=== PATIENT | male | born 1935 | race Hispanic/Latino ===

== ENCOUNTER 2018-04-25 13:50 | Emergency (ER) | payer OTHER, MEDICARE ==
[2018-04-25] MEDS ORDERED: ORPHENADRINE CITRATE 30 MG/ML ML ONE (16:11)
== END 2018-04-25 16:59 | disposition home or self-care (01) ==
LOC: EDH 13:50
DX: S13.8XXA Sprain of joints and ligaments of other parts of neck, initial encounter (principal); S00.83XA Contusion of other part of head, initial encounter; E11.9 Type 2 diabetes mellitus without complications; Z79.4 Long term (current) use of insulin; Z87.891 Personal history of nicotine dependence; W20.8XXA Other cause of strike by thrown, projected or falling object, initial encounter; Y93.89 Activity, other specified; Y92.098 Other place in other non-institutional residence as the place of occurrence of the external cause; Y99.8 Other external cause status
CPT/HCPCS: 70450; 72125; 96372; 99284; J2360

== ENCOUNTER 2019-04-09 14:18 | Inpatient (IN) | payer OTHER, MEDICARE ==
[~2019-04-09] VITALS: Ht 168.9 cm; Wt 77.6 kg
[2019-04-09 14:53] LABS: BASOPHILS % (AUTO) 0.3 % (0.0-5.0); EOSINOPHILS % (AUTO) 1.8 % (0.0-8.0); HEMATOCRIT 37.7 % (42-54); LYMPHOCYTES % (AUTO) 15.8 % (21.0-51.0); MEAN CORPUSCULAR HGB CONC 32.7 g/dL (32.0-36.0); MEAN CORPUSCULAR VOLUME 82.4 fL (79-99); MONOCYTES % (AUTO) 5.8 % (3.0-13.0); NEUTROPHILS % (AUTO) 76.3 % (40.0-77.0); PLATELET COUNT (AUTO) 208 K/uL (130-400); RED BLOOD CELL COUNT(AUTO) 4.57 MIL/uL (4.50-6.20); RED CELL DISTRIBUTION WIDTH 14.5 % (11.0-15.5); WHITE BLOOD COUNT (AUTO) 12.6 K/uL (4.8-10.8)
[2019-04-09] MEDS ORDERED: DEXAMETHASONE SOD PHOSPHATE 10MG/ML 1ML VIAL ONE (15:02)
[2019-04-09] MEDS ORDERED: CEFTRIAXONE SODIUM 1 GM ONE (15:02)
[2019-04-09] MEDS ORDERED: KETOROLAC TROMETHAMINE 30MG/ML ONE (15:02)
[2019-04-09] MEDS ORDERED: SODIUM CHLORIDE 0.9% 1000ML 1,000 ML IV ONE (15:03)
[2019-04-09] MEDS ORDERED: SODIUM CHLORIDE 0.9% 100 ML IV ONE (15:03)
[2019-04-09 15:30] LABS: CREATININE 1.1 mg/dL (0.5-1.5); POTASSIUM 4.4 mmol/L (3.5-5.1)
[2019-04-09 15:39] LABS: BILIRUBIN,DIRECT 0.1 mg/dL (0.0-0.3); BILIRUBIN,TOTAL 0.4 mg/dL (0.2-1.0); TOTAL PROTEIN, SERUM 7.4 g/dL (6.0-8.3)
[2019-04-09] MEDS ORDERED: ACETAMINOPHEN 325 MG TAB PO PRN (16:30)
[2019-04-09] MEDS ORDERED: ONDANSETRON HCL 4 MG/2 ML VIAL IVP PRN (16:30)
[2019-04-09] MEDS ORDERED: AZITHROMYCIN 500MG+NS 250ML 250 ML IV ONE ×2 (16:35→17:06)
[2019-04-09] MEDS ORDERED: IPRATROPIUM/ALBUTEROL SULFATE 3 ML SOLUTION IH ONE (16:44)
[2019-04-09 18:10] VITALS: BP 115/72
[2019-04-09 19:15] VITALS: BP 108/56
[2019-04-09] MEDS: DOXYCYCLINE 100MG+NS 250ML 250 ML IV SCH (20:07)
[2019-04-10] VITALS (7 sets, daily range): BP systolic 109–128; BP diastolic 53–65
[2019-04-10 04:58] LABS: HEMATOCRIT 32.8 % (42-54); MEAN CORPUSCULAR HEMOGLOBIN 27.6 pg (27.0-33.0); MEAN CORPUSCULAR HGB CONC 33.8 g/dL (32.0-36.0); MEAN CORPUSCULAR VOLUME 81.8 fL (79-99); PLATELET COUNT (AUTO) 196 K/uL (130-400); RED BLOOD CELL COUNT(AUTO) 4.01 MIL/uL (4.50-6.20); RED CELL DISTRIBUTION WIDTH 14.5 % (11.0-15.5); WHITE BLOOD COUNT (AUTO) 8.5 K/uL (4.8-10.8)
[2019-04-10 05:12] LABS: ALBUMIN 2.5 g/dL (3.5-5.0); BILIRUBIN,TOTAL 0.3 mg/dL (0.2-1.0); CREATININE 1.2 mg/dL (0.5-1.5); MAGNESIUM 1.7 mg/dL (1.80-2.40); POTASSIUM 4.4 mmol/L (3.5-5.1); TOTAL PROTEIN, SERUM 6.5 g/dL (6.0-8.3)
[2019-04-10] MEDS: INSULIN HUMULIN R 100 UNIT/ML 3ML SQ SCH ×4 (06:01→22:01)
[2019-04-10] MEDS: DOXYCYCLINE 100MG+NS 250ML 250 ML IV SCH ×2 (10:18→22:02)
--- NOTE | 2019-04-10 11:42 | NUR ---
DCP CM met with pt discussed dc plans. Pt is independent prior to admission, lives at home alone, daughter lives close by. Denies any equipments/services. Pt feels safe to go back home, daughter able to assist with transportation and needs as necessary. DC plan to home once stable. CM to cont to follow up. Addendum: 04/10/19 at 1143 by ANTON MOLINA LVN CM Amended: Links added.
[2019-04-10] MEDS ORDERED: METF-444 PO (14:28)
[2019-04-10] MEDS ORDERED: LACT10SO9 PO (14:28)
[2019-04-10] MEDS ORDERED: ATOR40TA71 PO (14:28)
[2019-04-10] MEDS ORDERED: ICOS1CAP PO (14:28)
[2019-04-10] MEDS ORDERED: ESOM40CA54 PO ×2 (14:28)
[2019-04-10] MEDS: CEFTRIAXONE SODIUM 1 GM IVP SCH (14:46)
[2019-04-10] MEDS: LACTULOSE 20 GM/30 ML UDCUP PO SCH (19:01)
[2019-04-10] MEDS: METFORMIN HCL 500 MG TABLET PO SCH (22:02)
[2019-04-10] MEDS: ATORVASTATIN CALCIUM 40 MG TABLET PO SCH (22:03)
[2019-04-11] MEDS: LACTULOSE 20 GM/30 ML UDCUP PO SCH ×2 (03:49→08:46)
[2019-04-11 03:52] VITALS: BP 100/51
[2019-04-11] MEDS: INSULIN HUMULIN R 100 UNIT/ML 3ML SQ SCH ×4 (06:36→21:25)
[2019-04-11] MEDS: Icosapent Ethyl (Vascepa) 2 GM PO SCH ×2 (08:00→16:57)
[2019-04-11 08:08] VITALS: BP 132/61
[2019-04-11] MEDS: DOXYCYCLINE 100MG+NS 250ML 250 ML IV SCH ×2 (08:47→21:23)
[2019-04-11] MEDS: PANTOPRAZOLE SODIUM 40 MG TABLET.DR PO SCH (08:47)
[2019-04-11] MEDS ORDERED: LACTULOSE 20 GM/30 ML UDCUP PO SCH (09:00)
[2019-04-11 12:04] VITALS: BP 111/59
[2019-04-11] MEDS: CEFTRIAXONE SODIUM 1 GM IVP SCH (15:22)
[2019-04-11 16:33] VITALS: BP 133/59
[2019-04-11 19:00] VITALS: BP 123/63
[2019-04-11] MEDS: ATORVASTATIN CALCIUM 40 MG TABLET PO SCH (21:24)
[2019-04-11] MEDS: METFORMIN HCL 500 MG TABLET PO SCH (21:24)
[2019-04-11 23:00] VITALS: BP 143/74
[2019-04-12 03:00] VITALS: BP 117/55
[2019-04-12] MEDS: INSULIN HUMULIN R 100 UNIT/ML 3ML SQ SCH ×2 (05:39→11:30)
[2019-04-12] MEDS: Icosapent Ethyl (Vascepa) 2 GM PO SCH (08:00)
[2019-04-12 08:14] VITALS: BP 132/52
[2019-04-12] MEDS: PANTOPRAZOLE SODIUM 40 MG TABLET.DR PO SCH (10:29)
[2019-04-12] MEDS: DOXYCYCLINE 100MG+NS 250ML 250 ML IV SCH (10:30)
[2019-04-12 12:11] VITALS: BP 114/45
[2019-04-12] MEDS ORDERED: LEVO500T2 PO (15:10)
== END 2019-04-12 15:20 | disposition home or self-care (01) | DRG 871 ==
LOC: EDH 14:18 → EDHIP 16:05 → 3BH 18:06
PROVIDERS: ADMIT Internal Medicine Infectious Disease; ATTEND Internal Medicine Infectious Disease
DX: A41.9 Sepsis, unspecified organism (principal); J18.9 Pneumonia, unspecified organism; Y95 Nosocomial condition; E11.9 Type 2 diabetes mellitus without complications; E66.9 Obesity, unspecified; E78.5 Hyperlipidemia, unspecified; I10 Essential (primary) hypertension; K59.00 Constipation, unspecified; E78.00 Pure hypercholesterolemia, unspecified; Z68.27 Body mass index [BMI] 27.0-27.9, adult; Z83.3 Family history of diabetes mellitus
CPT/HCPCS: 36415; 71046; 74176; 80048; 80053; 80076; 82550; 82948; 83605; 83690; 83735; 85025; 85027; 87040; 87804; 93005; 94640; G0378; J0456; J0696; J1100; J1815; J1885; J3490; J7030

== ENCOUNTER 2019-04-15 11:07 | Inpatient (IN) | payer OTHER, MEDICARE ==
[~2019-04-15] VITALS: Ht 165.1 cm; Wt 73.2 kg
[~2019-04-15 11:07] MED LIST: ATOR40TA71 PO; ESOM40CA54 PO; ICOS1CAP PO; LACT10SO9 PO; LEVO500T2 PO; METF-444 PO
[2019-04-15] MEDS ORDERED: ASPIRIN 325 MG TABLET ONE (11:17)
[2019-04-15 11:49] LABS: EOSINOPHILS % (AUTO) 3.1 % (0.0-8.0); HEMATOCRIT 34.7 % (42-54); LYMPHOCYTES % (AUTO) 26.5 % (21.0-51.0); MEAN CORPUSCULAR HEMOGLOBIN 27.3 pg (27.0-33.0); MEAN CORPUSCULAR VOLUME 82.8 fL (79-99); MONOCYTES % (AUTO) 6.4 % (3.0-13.0); PLATELET COUNT (AUTO) 239 K/uL (130-400); RED BLOOD CELL COUNT(AUTO) 4.19 MIL/uL (4.50-6.20); RED CELL DISTRIBUTION WIDTH 14.6 % (11.0-15.5); WHITE BLOOD COUNT (AUTO) 9.1 K/uL (4.8-10.8)
[2019-04-15 11:59] LABS: CREATININE 1.1 mg/dL (0.5-1.5); POTASSIUM 4.1 mmol/L (3.5-5.1)
[2019-04-15 12:06] LABS: ALBUMIN 2.6 g/dL (3.5-5.0); BILIRUBIN,TOTAL 0.4 mg/dL (0.2-1.0); TOTAL PROTEIN, SERUM 6.6 g/dL (6.0-8.3)
[2019-04-15 13:28] LABS: INR 1.01 (0.85-1.15); PARTIAL THROMBOPLASTIN TIME 24.4 SEC (26.3-35.5); PROTHROMBIN TIME 10.4 SEC (9.6-11.6)
[2019-04-15] MEDS ORDERED: NITROGLYCERIN 1GM/1 INCH PACKET TD ONE (14:29)
[2019-04-15] MEDS: ENOXAPARIN SODIUM 40 MG/0.4 ML SYRINGE SQ SCH (14:46)
[2019-04-15] MEDS ORDERED: ONDANSETRON HCL 4 MG/2 ML VIAL IVP PRN (15:00)
[2019-04-15] MEDS ORDERED: ACETAMINOPHEN 325 MG TAB PO PRN (15:00)
[2019-04-15] MEDS ORDERED: ENOXAPARIN SODIUM 40 MG/0.4 ML SYRINGE SQ ONE (15:51)
[2019-04-15] MEDS: INSULIN R PO SS1 SQ SCH ×2 (16:30→21:00)
[2019-04-15 18:44] VITALS: BP 134/64
[2019-04-15] MEDS: METOPROLOL TARTRATE 25 MG TAB PO SCH (22:06)
[2019-04-15 22:47] LABS: CREATINE KINASE, TOTAL 31 U/L (21-232); MYOGLOBIN 47 ng/mL (10-92); TROPONIN I < 0.04 ng/mL (0.00-0.06)
[2019-04-15 23:39] VITALS: BP 112/53
[2019-04-16 03:27] VITALS: BP 98/50
[2019-04-16] MEDS: INSULIN R PO SS1 SQ SCH ×4 (06:28→21:47)
[2019-04-16 07:48] VITALS: BP 125/58
--- NOTE | 2019-04-16 08:30 | NUR ---
AM ASSESSMENT PT LAYING IN BED, WATCHING TV, FAMILY @ BEDSIDE. 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 A/O X 3; FORGETFUL @ TIMES. SOB ON EXERTION. NO DISTRESS NOTED. DENIES CHEST PAIN OR DISCOMFORT. DENIES PALPITATIONS. TELE: SR 70s. DENIES N/V AND/OR DIARRHEA. IV PULLED OUT BY PT. CATHETER TIP INTACT. BR W/BRP. INSTRUCTED TO CALL FOR ASSISTANCE. CALL SARY W/IN REACH.
[2019-04-16] MEDS: METOPROLOL TARTRATE 25 MG TAB PO SCH ×2 (09:02→21:46)
[2019-04-16] MEDS: ASPIRIN 81MG TAB.CHEW PO SCH (09:02)
[2019-04-16] MEDS: ENOXAPARIN SODIUM 40 MG/0.4 ML SYRINGE SQ SCH (09:05)
--- NOTE | 2019-04-16 10:32 | NUR ---
DC PLAN PATIENT DISCHARGED THREE DAYS AGO RETURNED FOR DIFFERENT DIAGNOSIS OF CHEST PAIN. PATIENT LIVES ALONE. DAUGHTER LIVES CLOSE BY. INDEPENDENT ABLE TO PERFORM ADL'S. PATIENT HAS NO SERVICES OR DME'S. WANTS TO RETURN HOME. Addendum: 04/16/19 at 1035 by MARK PAIZ RN CM Amended: Links added.
[2019-04-16] MEDS ORDERED: BENZONATATE 100 MG CAPSULE PO SCH (11:45)
[2019-04-16 11:48] VITALS: BP 116/58
[2019-04-16] MEDS: LEVOFLOXACIN 500 MG TABLET PO SCH (11:49)
[2019-04-16 15:40] VITALS: BP 116/53
[2019-04-16 19:38] VITALS: BP 157/73
[2019-04-16] MEDS: BENZONATATE 100 MG CAPSULE PO SCH (21:46)
[2019-04-16 23:33] VITALS: BP 112/50
[2019-04-17 04:24] VITALS: BP 133/56
[2019-04-17] MEDS: INSULIN R PO SS1 SQ SCH ×4 (06:31→21:00)
[2019-04-17 07:39] VITALS: BP 129/59
[2019-04-17] MEDS: METOPROLOL TARTRATE 25 MG TAB PO SCH ×2 (10:23→20:48)
[2019-04-17] MEDS: BENZONATATE 100 MG CAPSULE PO SCH ×2 (10:23→20:48)
[2019-04-17] MEDS: ASPIRIN 81MG TAB.CHEW PO SCH (10:23)
[2019-04-17] MEDS: LEVOFLOXACIN 500 MG TABLET PO SCH ×2 (10:23→11:45)
[2019-04-17] MEDS: ENOXAPARIN SODIUM 40 MG/0.4 ML SYRINGE SQ SCH (10:24)
[2019-04-17 11:38] VITALS: BP 139/63
--- NOTE | 2019-04-17 12:00 | NUR ---
DR. QUINONES RETURNED CALL, STATED TO ADD PT. TO HIS CENSUS.
[2019-04-17 15:34] VITALS: BP 130/60
--- NOTE | 2019-04-17 18:00 | NUR ---
NO C/O OF CHEST DISCOMFORT TODAY.
[2019-04-17 19:15] VITALS: BP 128/49
--- NOTE | 2019-04-17 21:30 | NUR ---
DR QUINONES ROUNDED ON PATIENT PER DR QUINONES STRESS TEST AND ECHO FOR 04/18/19
[2019-04-17 23:27] VITALS: BP 116/55
[2019-04-18 03:45] VITALS: BP 113/54
--- NOTE | 2019-04-18 04:37 | NUR ---
ASSESSMENT NO CHEST PAIN OR SOB THROUGHOUT THE PM SHIFT. PATIENT A/OX3. [place]. HEARING AID ON BEDSIDE TABLE. PATIENT AWARE OF STRESS TEST. PATIENT HAS BEEN NPO SINCE MIDNIGHT. WILL CONTINUE TO MONITOR. CALL LIGHT WITHIN REACH
[2019-04-18] MEDS: INSULIN R PO SS1 SQ SCH ×4 (05:59→21:38)
[2019-04-18] MEDS ORDERED: REGADENOSON 0.4 MG/5 ML PF SYG IVP SCH (07:15)
[2019-04-18 07:24] VITALS: BP 115/57
--- NOTE | 2019-04-18 08:15 | NUR ---
AM ASSESSMENT PT LAYING IN BED, WATCHING TV. SEVERE [place]. A/O X 3. NO SOB. NO DISTRESS NOTED. DENIES CHEST PAIN OR DISCOMFORT. DENIES PALPITATIONS. TELE: SR 60s. DENIES N/V AND/OR DIARRHEA. NPO STATUS REINFORCED. PT TO HAVE ABHI SCAN TODAY. UP W/ASSISTANCE. INSTRUCTED TO CALL FOR ASSISTANCE. CALL SARY W/IN REACH.
[2019-04-18] MEDS: BENZONATATE 100 MG CAPSULE PO SCH ×2 (08:30→20:03)
[2019-04-18] MEDS: METOPROLOL TARTRATE 25 MG TAB PO SCH ×2 (08:30→20:03)
[2019-04-18] MEDS: LEVOFLOXACIN 500 MG TABLET PO SCH (08:30)
[2019-04-18] MEDS: ASPIRIN 81MG TAB.CHEW PO SCH (08:30)
[2019-04-18] MEDS: ENOXAPARIN SODIUM 40 MG/0.4 ML SYRINGE SQ SCH (08:33)
[2019-04-18 11:44] VITALS: BP 125/52
[2019-04-18 15:20] VITALS: BP 134/67
[2019-04-18 19:45] VITALS: BP 140/77
[2019-04-18 23:09] VITALS: BP 129/64
[2019-04-19 03:18] VITALS: BP 109/49
[2019-04-19 04:02] LABS: HEMATOCRIT 36.5 % (42-54); MEAN CORPUSCULAR HGB CONC 32.8 g/dL (32.0-36.0); MEAN CORPUSCULAR VOLUME 82.4 fL (79-99); PLATELET COUNT (AUTO) 197 K/uL (130-400); RED BLOOD CELL COUNT(AUTO) 4.43 MIL/uL (4.50-6.20); RED CELL DISTRIBUTION WIDTH 14.6 % (11.0-15.5); WHITE BLOOD COUNT (AUTO) 7.1 K/uL (4.8-10.8)
[2019-04-19 04:13] LABS: CREATININE 1.1 mg/dL (0.5-1.5)
[2019-04-19] MEDS: INSULIN R PO SS1 SQ SCH ×2 (06:15→11:30)
[2019-04-19 07:28] VITALS: BP 117/61
--- NOTE | 2019-04-19 07:45 | NUR ---
AM ASSESSMENT PT LAYING IN BED, WATCHING TV. A/O X 3. NO SOB. NO DISTRESS NOTED. DENIES CHEST PAIN OR DISCOMFORT. DENIES PALPITATIONS. TELE: SR 70s. DENIES N/V AND/OR DIARRHEA. UP W/ASSISTANCE. INSTRUCTED TO CALL FOR ASSISTANCE. CALL SARY W/IN REACH.
[2019-04-19] MEDS: LEVOFLOXACIN 500 MG TABLET PO SCH (08:37)
[2019-04-19] MEDS: ENOXAPARIN SODIUM 40 MG/0.4 ML SYRINGE SQ SCH (08:37)
[2019-04-19] MEDS: METOPROLOL TARTRATE 25 MG TAB PO SCH (08:37)
[2019-04-19] MEDS: BENZONATATE 100 MG CAPSULE PO SCH (08:37)
[2019-04-19] MEDS: ASPIRIN 81MG TAB.CHEW PO SCH (08:37)
[2019-04-19 11:43] VITALS: BP 116/55
[2019-04-19] MEDS ORDERED: METO-408 PO (14:17)
[2019-04-19] MEDS ORDERED: ISOS30TA6 PO (14:17)
--- NOTE | 2019-04-19 14:35 | NUR ---
DISCHARGE VERBAL & WRITTEN DISCHARGE INSTRUCTIONS REVIEWED & GIVEN TO PT & SPOUSE. QUESTIONS ENCOURAGED & CLARIFIED. PROPER CARE & MGT OF CHEST PAIN REVIEWED. NEW PRESCRIBED MEDICATIONS REVIEWED. PRESCRIPTION GIVEN TO PT; SIGNED COPY PLACED IN CHART. F/U APPT REVIEWED. TELE EUGENE REMOVED EARLIER. IV DISCONTINUED. PT & SPOUSE TO GATHER PERSONAL BELONGINGS. WILL NOTIFY STAFF WHEN READY TO BE TAKEN TO PRIVATE VEHICLE.
== END 2019-04-19 14:50 | disposition home or self-care (01) | DRG 302 ==
LOC: EDH 11:07 → EDHIP 11:08 → 2DH 18:42
PROVIDERS: ADMIT Internal Medicine Infectious Disease; ATTEND Internal Medicine Infectious Disease
DX: I25.119 Atherosclerotic heart disease of native coronary artery with unspecified angina pectoris (principal); J18.9 Pneumonia, unspecified organism; E11.9 Type 2 diabetes mellitus without complications; E78.5 Hyperlipidemia, unspecified; E66.9 Obesity, unspecified; I10 Essential (primary) hypertension; Z90.49 Acquired absence of other specified parts of digestive tract; Z83.3 Family history of diabetes mellitus; Z87.01 Personal history of pneumonia (recurrent); Z68.26 Body mass index [BMI] 26.0-26.9, adult
CPT/HCPCS: 36415; 71045; 71250; 78452; 80048; 80053; 82550; 82948; 83735; 83874; 84484; 85025; 85027; 85610; 85730; 93005; 93017; 93306; 96374; A9500; G0378; J1650; J1815; J2785

== ENCOUNTER 2022-01-21 16:03 | Observation (INO) | payer OTHER, MEDICARE ==
[~2022-01-21] VITALS: Ht 165.1 cm; Wt 72.6 kg
[~2022-01-21 16:03] MED LIST changes: +ALBU90AE2 IH; +ISOS30TA92 PO; +LACT10SO5 PO; -LACT10SO9 PO; -LEVO500T2 PO; +LINA5TAB PO; +METO-408 PO
[2022-01-21 17:22] LABS: BASOPHILS % (AUTO) 0.9 % (0.0-5.0); EOSINOPHILS % (AUTO) 1.6 % (0.0-8.0); HEMATOCRIT 35.4 % (42-54); LYMPHOCYTES % (AUTO) 41.8 % (21.0-51.0); MEAN CORPUSCULAR HEMOGLOBIN 29.4 pg (27.0-33.0); MEAN CORPUSCULAR HGB CONC 31.9 g/dL (32.0-36.0); MEAN CORPUSCULAR VOLUME 91.9 fL (79-99); MONOCYTES % (AUTO) 4.1 % (3.0-13.0); NEUTROPHILS % (AUTO) 51.2 % (40.0-77.0); PLATELET COUNT (AUTO) 505 K/uL (130-400); RED BLOOD CELL COUNT(AUTO) 3.85 MIL/uL (4.50-6.20); RED CELL DISTRIBUTION WIDTH 16.7 % (11.0-15.5); WHITE BLOOD COUNT (AUTO) 11.7 K/uL (4.8-10.8)
[2022-01-21 17:48] LABS: ALBUMIN 2.3 g/dL (3.5-5.0); CREATININE 1.5 mg/dL (0.5-1.5)
[2022-01-21] MEDS ORDERED: 0.9%NACL 1000ML 1,000 ML IV ONE (18:00)
[2022-01-21 18:14] LABS: APPEARANCE,URINE Clear (CLEAR); BILIRUBIN,URINE Negative (NEGATIVE); COLOR,URINE Yellow (YELLOW); GLUCOSE, URINE (UA) >=1000 mg/dL (NEGATIVE); KETONES,URINE Negative (NEGATIVE); LEUKOCYTE ESTERASE ,URINE Negative (NEGATIVE); NITRATE,URINE Negative (NEGATIVE); OCCULT BLOOD,URINE Negative (NEGATIVE); PROTEIN,URINE Negative (NEGATIVE); UROBILINOGEN,URINE 0.2 mg/dL (0.2-1.0)
[2022-01-21 18:20] LABS: BACTERIA,URINE Rare /HPF (None Seen); RBC,URINE 0-1 /HPF (0-1); WBC,URINE 0-1 /HPF (0-1)
[2022-01-21 18:21] LABS: HYALINE CASTS, URINE 0-1 /LPF (0-1 /LPF); MUCUS,URINE Rare LPF (None Seen); SQUAMOUS EPITHELIAL CELL,UR Rare /HPF (0-2)
[2022-01-21] MEDS: INSULIN HUMULIN R 100 UNIT/ML 3ML SQ SCH (21:21)
[2022-01-21] MEDS ORDERED: LIDOCAINE HCL-MPF 1% 2ML VIAL IV PRN (21:30)
[2022-01-21] MEDS ORDERED: POTASSIUM CHLORIDE 20MEQ/100ML 100 ML IV PRN (21:30)
[2022-01-21] MEDS ORDERED: ONDANSETRON 4MG TABLET PO PRN (21:30)
[2022-01-21] MEDS ORDERED: MAGNESIUM 2GM PREMIX 50ML 50 ML IV PRN (21:30)
[2022-01-21] MEDS ORDERED: ENOXAPARIN SODIUM 30 MG/0.3 ML SQ ONE (21:30)
[2022-01-21] MEDS ORDERED: ACETAMINOPHEN 325 MG TAB PO PRN (21:30)
[2022-01-21] MEDS ORDERED: POTASSIUM CHLORIDE 10% ELIXIR 20 MEQ/15 ML UDCUP PO PRN (21:30)
[2022-01-21] MEDS ORDERED: KCL 20 MEQ ERTAB PO PRN (21:30)
[2022-01-21] MEDS: 0.9%NACL 1000ML 1,000 ML IV SCH (21:33)
[2022-01-22 06:58] LABS: BASOPHILS % (AUTO) 1.1 % (0.0-5.0); HEMATOCRIT 33.9 % (42-54); LYMPHOCYTES % (AUTO) 39.9 % (21.0-51.0); MEAN CORPUSCULAR HEMOGLOBIN 29.2 pg (27.0-33.0); MEAN CORPUSCULAR HGB CONC 31.9 g/dL (32.0-36.0); MEAN CORPUSCULAR VOLUME 91.6 fL (79-99); MONOCYTES % (AUTO) 5.7 % (3.0-13.0); NEUTROPHILS % (AUTO) 50.8 % (40.0-77.0); PLATELET COUNT (AUTO) 404 K/uL (130-400); RED CELL DISTRIBUTION WIDTH 16.8 % (11.0-15.5); WHITE BLOOD COUNT (AUTO) 6.5 K/uL (4.8-10.8)
[2022-01-22 07:14] VITALS: BP 126/74
[2022-01-22 07:14] LABS: CREATININE 1.2 mg/dL (0.5-1.5); MAGNESIUM 1.2 mg/dL (1.80-2.40); POTASSIUM 4.2 mmol/L (3.5-5.1)
[2022-01-22 07:33] LABS: HEMOGLOBIN A1C 5.9 % (4.0-6.0)
[2022-01-22] MEDS: 0.9%NACL 1000ML 1,000 ML IV SCH (09:03)
[2022-01-22] MEDS: INSULIN HUMULIN R 100 UNIT/ML 3ML SQ SCH ×3 (11:30→20:53)
[2022-01-22 12:15] VITALS: BP 96/54
[2022-01-22 16:04] VITALS: BP 103/80
[2022-01-22 20:00] VITALS: BP 119/48
[2022-01-22] MEDS ORDERED: ONDANSETRON 4MG INJ ONE (20:23)
[2022-01-23 00:34] VITALS: BP 97/58
[2022-01-23 04:00] VITALS: BP 106/61
[2022-01-23 04:38] LABS: HEMATOCRIT 31.6 % (42-54); MEAN CORPUSCULAR HEMOGLOBIN 29.2 pg (27.0-33.0); MEAN CORPUSCULAR HGB CONC 32.3 g/dL (32.0-36.0); MEAN CORPUSCULAR VOLUME 90.5 fL (79-99); RED BLOOD CELL COUNT(AUTO) 3.49 MIL/uL (4.50-6.20); RED CELL DISTRIBUTION WIDTH 16.6 % (11.0-15.5); WHITE BLOOD COUNT (AUTO) 6.5 K/uL (4.8-10.8)
[2022-01-23 05:01] LABS: MAGNESIUM 1.9 mg/dL (1.80-2.40); POTASSIUM 4.4 mmol/L (3.5-5.1)
[2022-01-23] MEDS: INSULIN HUMULIN R 100 UNIT/ML 3ML SQ SCH (06:05)
[2022-01-23 08:00] VITALS: BP 122/65
[2022-01-23 12:00] VITALS: BP 111/57
== END 2022-01-23 13:35 | disposition home or self-care (01) ==
LOC: EDH 16:03 → EDHIP 21:01 → INTOOBSV 21:01 → EDHIP 01-22 04:37 → 4DH 01-22 06:29
PROVIDERS: ADMIT Internal Medicine Infectious Disease; ATTEND Internal Medicine Infectious Disease
DX: I10 Essential (primary) hypertension (principal); Z20.822 Contact with and (suspected) exposure to COVID-19; I95.89 Other hypotension; E86.1 Hypovolemia; E86.0 Dehydration; N17.9 Acute kidney failure, unspecified; E11.9 Type 2 diabetes mellitus without complications; I25.10 Atherosclerotic heart disease of native coronary artery without angina pectoris; R53.1 Weakness; D64.9 Anemia, unspecified; E78.5 Hyperlipidemia, unspecified; N28.9 Disorder of kidney and ureter, unspecified; D72.829 Elevated white blood cell count, unspecified; R53.81 Other malaise; Z79.899 Other long term (current) drug therapy; Z98.890 Other specified postprocedural states; Z90.49 Acquired absence of other specified parts of digestive tract; Z98.61 Coronary angioplasty status; Z95.1 Presence of aortocoronary bypass graft; Z79.84 Long term (current) use of oral hypoglycemic drugs
CPT/HCPCS: 96372; 96361 ×4; 99285; 84484; 80053; 85025 ×2; 87040 ×2; 83605 ×2; 81001; 36415 ×3; 87635; 71045; 93005; 96365; 96366; 83036; 83735 ×2; 80048 ×2; 82948 ×5; 85027; C9803; J7030; J1650; G0378 ×18; J3475; J2405

== ENCOUNTER 2023-01-18 06:43 | Inpatient (IN) | payer MEDICARE ==
[~2023-01-18] VITALS: Ht 167.6 cm; Wt 62.7 kg
[2023-01-18] MEDS ORDERED: 0.9%NACL 1000ML 1,000 ML IV ONE (07:30)
[2023-01-18 07:55] LABS: BASOPHILS % (AUTO) 0.2 % (0.0-5.0); EOSINOPHILS % (AUTO) 0.5 % (0.0-8.0); HEMATOCRIT 35.2 % (42-54); MEAN CORPUSCULAR HEMOGLOBIN 29.1 pg (27.0-33.0); MEAN CORPUSCULAR VOLUME 88.4 fL (79-99); MONOCYTES % (AUTO) 6.1 % (3.0-13.0); NEUTROPHILS % (AUTO) 81.7 % (40.0-77.0); PLATELET COUNT (AUTO) 233 K/uL (130-400); RED BLOOD CELL COUNT(AUTO) 3.98 MIL/uL (4.50-6.20); RED CELL DISTRIBUTION WIDTH 14.3 % (11.0-15.5); WHITE BLOOD COUNT (AUTO) 8.7 K/uL (4.8-10.8)
[2023-01-18 09:10] LABS: CREATININE 1.3 mg/dL (0.5-1.5); POTASSIUM 4.5 mmol/L (3.5-5.1); TOTAL PROTEIN, SERUM 7.1 g/dL (6.0-8.3)
[2023-01-18] MEDS ORDERED: CEFTRIAXONE 1G VIAL IVPB ONE (11:30)
[2023-01-18] MEDS: AZITHROMYCIN 500MG+NS 250ML IVPB SCH ×2 (11:48→11:57)
[2023-01-18] MEDS ORDERED: IOHEXOL-350 75 ML VIAL IV ONE (12:42)
[2023-01-18] MEDS ORDERED: FERR324T PO (15:11)
[2023-01-18] MEDS ORDERED: FURO20TA4 PO (15:11)
[2023-01-18] MEDS ORDERED: DOCU100T PO (15:11)
[2023-01-18] MEDS ORDERED: PANT40GR PO (15:11)
[2023-01-18] MEDS ORDERED: CLOP75TA32 PO (15:11)
[2023-01-18] MEDS ORDERED: SITA100T12 PO (15:11)
[2023-01-18] MEDS ORDERED: ONDA8TAB12 PO (15:11)
[2023-01-18] MEDS ORDERED: SUCR1TAB2 PO (15:11)
[2023-01-18 16:22] LABS: APPEARANCE,URINE CLEAR (CLEAR); BILIRUBIN,URINE NEGATIVE (NEGATIVE); COLOR,URINE YELLOW (YELLOW); GLUCOSE, URINE (UA) NEGATIVE (NEGATIVE); KETONES,URINE NEGATIVE (NEGATIVE); LEUKOCYTE ESTERASE ,URINE NEGATIVE Leu/uL (NEGATIVE); NITRATE,URINE NEGATIVE (NEGATIVE); OCCULT BLOOD,URINE NEGATIVE (NEGATIVE); PH,URINE 5.5 (5.0-8.0); PROTEIN,URINE 10 mg/dL (NEGATIVE); UROBILINOGEN,URINE 0.2 mg/dL (0.2-1.0)
[2023-01-18 16:23] LABS: BACTERIA,URINE RARE /HPF (None Seen); MUCUS,URINE RARE LPF (None Seen); RBC,URINE 0-1 /HPF (0-1); WBC,URINE 0-1 /HPF (0-1)
[2023-01-18] MEDS ORDERED: ACETAMINOPHEN 325 MG TAB PO PRN (21:30)
[2023-01-18] MEDS ORDERED: ZOSYN 3.375GM +NS 50ML IVPB SCH (21:30)
[2023-01-18] MEDS: DOXYCYCLINE 100MG+NS 250ML IV SCH (21:48)
[2023-01-19] MEDS ORDERED: 0.9%NACL 50ML IV SCH
[2023-01-19] MEDS ORDERED: ZOSYN 3.375GM+NS 50ML 50 ML IVPB ONE (05:30)
[2023-01-19 06:26] LABS: HEMATOCRIT 31.5 % (42-54); MEAN CORPUSCULAR HEMOGLOBIN 29.1 pg (27.0-33.0); MEAN CORPUSCULAR HGB CONC 33.3 g/dL (32.0-36.0); MEAN CORPUSCULAR VOLUME 87.3 fL (79-99); RED BLOOD CELL COUNT(AUTO) 3.61 MIL/uL (4.50-6.20); RED CELL DISTRIBUTION WIDTH 14.5 % (11.0-15.5); WHITE BLOOD COUNT (AUTO) 14.3 K/uL (4.8-10.8)
[2023-01-19 06:34] LABS: POTASSIUM 4.1 mmol/L (3.5-5.1)
[2023-01-19 06:48] LABS: HEMOGLOBIN A1C 7.1 % (4.0-6.0)
[2023-01-19] MEDS: ENOXAPARIN SODIUM 30 MG/0.3 ML SQ SCH (09:51)
[2023-01-19] MEDS: DOXYCYCLINE 100MG+NS 250ML IV SCH ×2 (09:51→20:50)
[2023-01-19] MEDS: INSULIN HUMULIN R 100 UNIT/ML 3ML SQ SCH ×3 (11:24→21:00)
[2023-01-19] MEDS: ZOSYN 3.375GM +NS 50ML IVPB SCH ×2 (14:17→23:01)
[2023-01-20 02:45] VITALS: BP 140/60; PULSE 67; RESP 20
[2023-01-20] MEDS: INSULIN HUMULIN R 100 UNIT/ML 3ML SQ SCH ×4 (05:47→21:00)
[2023-01-20] MEDS: ZOSYN 3.375GM +NS 50ML IVPB SCH ×3 (06:14→22:43)
[2023-01-20 08:00] VITALS: BP 141/59; PULSE 66; RESP 18; O2SAT 98
[2023-01-20] MEDS: DOXYCYCLINE 100MG+NS 250ML IV SCH ×2 (10:12→21:32)
[2023-01-20] MEDS: ENOXAPARIN SODIUM 30 MG/0.3 ML SQ SCH (10:13)
[2023-01-20 12:00] VITALS: BP 147/71; PULSE 70; RESP 18
[2023-01-20 16:00] VITALS: BP 163/68; PULSE 61; RESP 18
[2023-01-20 20:00] VITALS: O2SAT 99
[2023-01-20] MEDS ORDERED: LACTULOSE 20 GM/30 ML UDCUP PO PRN (20:00)
[2023-01-20 20:30] VITALS: BP 141/72; PULSE 75; RESP 18
[2023-01-21] VITALS (7 sets, daily range): BP systolic 131–160; BP diastolic 58–69; PULSE 61–78; RESP 16–20; O2SAT 98
[2023-01-21 05:27] LABS: HEMATOCRIT 30.6 % (42-54); MEAN CORPUSCULAR HEMOGLOBIN 28.7 pg (27.0-33.0); MEAN CORPUSCULAR HGB CONC 32.7 g/dL (32.0-36.0); MEAN CORPUSCULAR VOLUME 87.9 fL (79-99); RED BLOOD CELL COUNT(AUTO) 3.48 MIL/uL (4.50-6.20); RED CELL DISTRIBUTION WIDTH 14.6 % (11.0-15.5); WHITE BLOOD COUNT (AUTO) 8.1 K/uL (4.8-10.8)
[2023-01-21 05:38] LABS: CREATININE 0.9 mg/dL (0.5-1.5); MAGNESIUM 1.5 mg/dL (1.80-2.40); POTASSIUM 3.9 mmol/L (3.5-5.1)
[2023-01-21] MEDS: ZOSYN 3.375GM +NS 50ML IVPB SCH ×3 (05:47→22:27)
[2023-01-21] MEDS: INSULIN HUMULIN R 100 UNIT/ML 3ML SQ SCH ×4 (06:47→20:59)
[2023-01-21] MEDS: DOXYCYCLINE 100MG+NS 250ML IV SCH ×2 (09:33→21:00)
[2023-01-21] MEDS: ENOXAPARIN SODIUM 30 MG/0.3 ML SQ SCH (09:34)
[2023-01-22] VITALS: BP_SYST 127; BP_SYST 147; BP_DIAS 63; BP_DIAS 83; PULSE 69; PULSE 76; RESP 16; RESP 18
[2023-01-22 04:31] VITALS: BP 147/83; PULSE 69; RESP 16
[2023-01-22] MEDS: ZOSYN 3.375GM +NS 50ML IVPB SCH ×2 (05:37→14:29)
[2023-01-22 06:00] LABS: HEMATOCRIT 30.8 % (42-54); MEAN CORPUSCULAR HEMOGLOBIN 29.2 pg (27.0-33.0); MEAN CORPUSCULAR HGB CONC 32.5 g/dL (32.0-36.0); MEAN CORPUSCULAR VOLUME 90.1 fL (79-99); RED BLOOD CELL COUNT(AUTO) 3.42 MIL/uL (4.50-6.20); RED CELL DISTRIBUTION WIDTH 14.6 % (11.0-15.5); WHITE BLOOD COUNT (AUTO) 6.2 K/uL (4.8-10.8)
[2023-01-22 06:28] LABS: CREATININE 0.8 mg/dL (0.5-1.5); MAGNESIUM 1.6 mg/dL (1.80-2.40); POTASSIUM 3.7 mmol/L (3.5-5.1)
[2023-01-22] MEDS: INSULIN HUMULIN R 100 UNIT/ML 3ML SQ SCH ×3 (06:43→15:44)
[2023-01-22 08:00] VITALS: BP 135/66; PULSE 66; RESP 16
[2023-01-22] MEDS: DOXYCYCLINE 100MG+NS 250ML IV SCH (08:56)
[2023-01-22] MEDS: ENOXAPARIN SODIUM 30 MG/0.3 ML SQ SCH (08:56)
[2023-01-22] MEDS ORDERED: POTASSIUM CHLORIDE 20MEQ/100ML 100 ML IV PRN (09:30)
[2023-01-22] MEDS ORDERED: MAGNESIUM 2GM PREMIX 50ML 50 ML IV PRN (09:30)
[2023-01-22] MEDS ORDERED: KCL 20 MEQ ERTAB PO PRN (09:30)
[2023-01-22] MEDS ORDERED: POTASSIUM CHLORIDE 10% ELIXIR 20 MEQ/15 ML UDCUP PO PRN (09:30)
[2023-01-22 11:46] VITALS: BP 131/62; PULSE 67; RESP 18
[2023-01-22] MEDS ORDERED: MAGNESIUM 4GM PREMIX 100ML 100 ML IV SCH (14:30)
[2023-01-22 15:34] VITALS: BP 135/61; PULSE 70; RESP 18
== END 2023-01-22 17:49 | disposition home or self-care (01) | DRG 871 ==
LOC: EDH 06:43 → EDHIP 15:13 → 3AH 01-20 02:45
PROVIDERS: ADMIT Internal Medicine Infectious Disease; ATTEND Internal Medicine Infectious Disease
DX: A41.9 Sepsis, unspecified organism (principal); J18.9 Pneumonia, unspecified organism; E11.9 Type 2 diabetes mellitus without complications; I10 Essential (primary) hypertension; K80.20 Calculus of gallbladder without cholecystitis without obstruction; Z20.822 Contact with and (suspected) exposure to COVID-19; K82.8 Other specified diseases of gallbladder; I25.10 Atherosclerotic heart disease of native coronary artery without angina pectoris; E78.5 Hyperlipidemia, unspecified; Z95.1 Presence of aortocoronary bypass graft; Z90.3 Acquired absence of stomach [part of]; Z85.028 Personal history of other malignant neoplasm of stomach; Z83.3 Family history of diabetes mellitus; Z87.11 Personal history of peptic ulcer disease
CPT/HCPCS: 36415; 71045; 74177; 80048; 80053; 81001; 82948; 83036; 83605; 83735; 83880; 84484; 85025; 85027; 87040; 87635; 87804; 93005; C9803; G0378; J0456; J0696; J1650; J2543; J3475; J3490; J7030; Q9967